=== PATIENT | female | born 1950 | race Two or more races ===

== ENCOUNTER 2018-06-08 08:45 | Outpatient (CLI) | payer OTHER ==
[~2018-06-08 08:45] MED LIST: ALTACE10 MG PO; HYDROCHLOROTHIA25 MG PO; SYNTHROID100 MCG PO; TRAMADOL HCL50 MG PO; TRIPLE ANTIBIOT15 GM TP; ZOCOR20 MG PO
== END 2018-06-08 17:00 | disposition home or self-care (01) ==
LOC: SONOGRAMA 08:45
DX: N60.11 Diffuse cystic mastopathy of right breast (principal); N60.12 Diffuse cystic mastopathy of left breast; Z12.31 Encounter for screening mammogram for malignant neoplasm of breast

== ENCOUNTER 2019-02-18 11:45 | Emergency (ER) | payer OTHER ==
[~2019-02-18] VITALS: Ht 157.5 cm; Wt 95.3 kg
[2019-02-18] MEDS ORDERED: NORVASC10 MG (11:55)
[2019-02-18] MEDS ORDERED: TOPROL XL25 M1 (11:55)
== END 2019-02-18 15:09 | disposition home or self-care (01) ==
LOC: ER 11:45
DX: J45.998 Other asthma (principal); J06.9 Acute upper respiratory infection, unspecified

== ENCOUNTER 2019-07-10 14:45 | Emergency (ER) | payer OTHER ==
[~2019-07-10] VITALS: Ht 157.5 cm; Wt 98.0 kg
[~2019-07-10 14:45] MED LIST changes: +NORVASC10 MG; +TOPROL XL25 M1
[2019-07-10] MEDS ORDERED: PLAVIX75 MG (14:55)
== END 2019-07-10 21:17 | disposition home or self-care (01) ==
LOC: ER 14:45
DX: K57.32 Diverticulitis of large intestine without perforation or abscess without bleeding (principal); R10.32 Left lower quadrant pain

== ENCOUNTER 2019-10-01 10:05 | Outpatient (CLI) | payer OTHER ==
[~2019-10-01 10:05] MED LIST changes: +PLAVIX75 MG
== END 2019-10-01 10:16 | disposition home or self-care (01) ==
LOC: RAD 10:05 → MAMO-SONO 10:45
PROVIDERS: ATTEND Internal Medicine Cardiovascular Disease
DX: M12.89 Other specific arthropathies, not elsewhere classified, multiple sites (principal); M46.47 Discitis, unspecified, lumbosacral region

== ENCOUNTER 2019-11-24 11:30 | Outpatient (CLI) | payer OTHER ==
[2019-12-06] MEDS ORDERED: LYRICA50 MG PO (11:55)
[2019-12-06] MEDS ORDERED: CELEBREX200MG PO (11:56)
== END 2019-11-24 11:32 | disposition home or self-care (01) ==
LOC: RAD 11:30
PROVIDERS: ATTEND Internal Medicine Cardiovascular Disease
DX: M12.842 Other specific arthropathies, not elsewhere classified, left hand (principal)

== ENCOUNTER 2020-11-02 17:30 | Emergency (ER) | payer OTHER ==
[~2020-11-02] VITALS: Ht 154.9 cm; Wt 97.5 kg
[~2020-11-02 17:30] MED LIST changes: +CELEBREX200MG PO; +LYRICA50 MG PO
[2020-11-02] MEDS ORDERED: REPATHA SU140 MG/1 M (17:44)
== END 2020-11-02 21:05 | disposition home or self-care (01) ==
LOC: ER 17:30 → CPU-OBS 18:03 → ER 21:05
DX: M94.0 Chondrocostal junction syndrome [Tietze] (principal); R07.89 Other chest pain; Z11.52 Encounter for screening for COVID-19

== ENCOUNTER 2023-10-30 04:01 | Emergency (ER) | payer OTHER ==
[~2023-10-30] VITALS: Ht 157.5 cm; Wt 89.4 kg
[~2023-10-30 04:01] MED LIST changes: +REPATHA SU140 MG/1 M
[2023-10-30] MEDS ORDERED: MEPERIDINE HCL/PF 50 MG/ML VIAL IM STA (04:27)
[2023-10-30] MEDS ORDERED: PROMETHAZINE HCL 50 MG/ML AMPUL IM STA (04:27)
[2023-10-30] MEDS ORDERED: 0.9 % SODIUM CHLORIDE 1,000 ML IV ONE (04:30)
[2023-10-30] MEDS ORDERED: DIATRIZOATE MEGLUMINE, SODIUM 30 ML BOTTLE ONE (04:33)
[2023-10-30] MEDS ORDERED: PROMETHAZINE HCL 50 MG/ML AMPUL IM ONE (04:48)
[2023-10-30 05:04] LABS: HEMATOCRIT 38.7 % (36.0-45.00); HEMOGLOBIN 13.2 g/dL (12.0-15.00); MEAN CORPUSCULAR HEMOGLOBIN 32.5 pg (27.00-32.0); MEAN CORPUSCULAR HGB CONC 34.2 g/dl (32.0-36.0); PLATELET COUNT 230 K/uL (150-450); RED BLOOD COUNT 4.07 M/uL (4.00-6.00); RED CELL DISTRIBUTION WIDTH 12.5 % (11.5-14.5)
[2023-10-30 05:31] LABS: INR 1.02; PARTIAL THROMBOPLASTIN TIME 26.8 SECONDS (22.0-34.0); PROTHROMBIN TIME 10.7 SECONDS (9.0-11.5)
[2023-10-30 05:36] LABS: ALBUMIN 3.6 gm/dL (3.4-5.0); BILIRUBIN TOTAL 0.39 mg/dL (0.3-1.2); BILIRUBIN,CONJUGATED 0.12 mg/dL (0.0-0.2); BILIRUBIN,UNCONJUGATED 0.27 mg/dL (0.0-0.6); CALCIUM 8.6 mg/dL (8.5-10.1); CREATININE SERUM 0.71 mg/dL (0.55-1.02); GFR 81.15; GLOBULINA 3.1 G/DL (2.4-3.5); POTASSIUM 4.35 mEq/L (3.5-5.1); TOTAL PROTEIN 6.7 gm/dL (6.4-8.2)
[2023-10-30 05:50] LABS: PH,URINE 5.5 (5.0-8.0); URINE APPEARANCE Cloudy; URINE BILIRRUBIN Negative (NEGATIVE); URINE BLOOD Negative; URINE COLOR Yellow; URINE GLUCOSE Negative (NEGATIVE); URINE LEUKOCYTE Negative; URINE NITRATE Negative; URINE PROTEIN Negative (NEGATIVE); URINE UROBILINOGEN 0.2 E.U./dl
[2023-10-30 05:53] LABS: URINE BACTERIA 171.2 uL (0.0-1933); URINE EPITHELIAL CELLS 11.7 uL (0.0-38.8); URINE RBC 9.7 uL (0.0-20.8); URINE WBC 4.4 uL (0.0-23.2)
[2023-10-30] MEDS ORDERED: MEPERIDINE HCL 25 MG/ML AMPUL IV ONE (10:30)
[2023-10-30] MEDS ORDERED: CIPROFLOXACIN IN 5 % DEXTROSE 400 MG/200 ML PIGGYBAG IV ONE ×2 (12:30→13:01)
[2023-10-30] MEDS ORDERED: METROnidazole 500 MG TABLET (vss) PO ONE (12:30)
[2023-10-30] MEDS ORDERED: METRONIDAZOLE/SODIUM CHLORIDE 500 MG/100 ML PIGGYBACK IV ONE (13:02)
== END 2023-10-30 14:40 | disposition home or self-care (01) ==
LOC: ER 04:01
PROVIDERS: General Practice
DX: R10.9 Unspecified abdominal pain (principal); I10 Essential (primary) hypertension; E03.8 Other specified hypothyroidism; Z88.8 Allergy status to other drugs, medicaments and biological substances; Z91.013 Allergy to seafood
CPT/HCPCS: 36415; 74177; 96365; 96366; 96372; 99284; J0744; J2550; J3490 ×2; J7030; Q9965